=== PATIENT | female | born 2000 | race Caucasian/White ===

== ENCOUNTER 2022-05-31 09:50 | Emergency (ER) | payer BC, SELFPAY ==
[2022-05-31] VITALS (10 sets, daily range): BP systolic 128–159; BP diastolic 97–105; PULSE 116–138; RESP 16–29; TEMP 36.6; O2SAT 95–98
--- NOTE | 2022-05-31 09:55 | ED.PSYCH ---
HPI - Psych General Chief Complaint: Psychiatric Symptoms Stated Complaint: manic episode History of Present Illness HPI Narrative: 22-year-old female presents the emergency room via EMS for evaluation of paranoia and delusions. EMS states that they were on the scene with the patient and local law enforcement, stating that the patient was looking for a lost cat. Patient EMS states patient has a history of schizophrenia, bipolar and anxiety. Patient is tearful on presentation, stating that a serial killer is out to find her. Patient denies SI or HI. Related Data Allergies Allergy/AdvReac Type Severity Reaction Status Date / Time No Known Allergies Allergy Verified 05/31/22 09:59 Review of Systems Review of Systems: CONSTITUTIONAL: Denies fever, chills, or sweats. EYES: Denies visual changes, redness, or discharge. ENT: Denies rhinorrhea, congestion, sore throat, or otalgia. CARDIOVASCULAR: Denies chest pain, palpitations, or edema. RESPIRATORY: Denies cough or dyspnea. GASTROINTESTINAL: Reports nausea GENITOURINARY: Denies dysuria or hematuria. SKIN: Denies rash or itching. MUSCULOSKELETAL: Denies back pain, joint pain, or myalgia. NEUROLOGIC: Denies headache, numbness, dizziness, or weakness. PSYCHIATRIC: Denies anxiety or depression. [facility] Social History Social History Substance use type: does not use Exam Narrative: GENERAL: Well-appearing, well-nourished, no physical limitations, and in psychiatric acute distress. HEAD: Normocephalic, atraumatic. EYES: Conjunctivae normal, PERRLA and EOMI. CHEST: Clear to auscultation. No respiratory distress. No wheezes rales or rhonchi. No tenderness. HEART: Tachycardic and regular rhythm. No murmur heard. Normal peripheral pulses. EXTREMITIES: Normal range of motion. No edema. No clubbing or cyanosis SKIN: Warm, dry, no rash. No noted wounds NEURO: No focal deficits. Alert and oriented x3. MAEW. CN's II-XI intact bilaterally, normal gait PSYCH: Tearful, refusing to answer most questions. Paranoid and delusional Course Course Emergency Course: 1225: Patient is medically cleared. Crisis has been called. 1245: Patient was seen wandering the hallway of the ER looking into other patient's room. Patient overheard telling another patient to get your hands off of my son . IV was removed. Approximately 5 minutes later, patient was seen eloping the emergency room. Vital Signs Vital signs: Vital Signs Temperature 36.6 C 05/31/22 09:51 Pulse Rate 138 H 05/31/22 09:51 Respiratory Rate 16 05/31/22 09:51 Blood Pressure 159/97 H 05/31/22 09:51 Pulse Oximetry 98 05/31/22 09:51 Oxygen Delivery Room Air 05/31/22 09:51 Temperature 36.6 C 05/31/22 09:51 Pulse Rate 118 H 05/31/22 11:17 Respiratory Rate 29 H 05/31/22 11:15 Blood Pressure 128/99 H 05/31/22 11:17 Pulse Oximetry 98 05/31/22 11:00 Oxygen Delivery Room Air 05/31/22 09:51 MDM - Psych Lab Data Result diagrams: 05/31/22 10:08 05/31/22 10:08 Labs: Lab Results 05/31/22 05/31/22 05/31/22 Range/Units 10:08 10:08 10:08 WBC 13.8 H (4.5-10.0) K/mm3 RBC 4.96 (4.2-5.4) M/mm3 Hgb 14.5 (12.0-15.0) g/dL Hct 42.7 (37.0-47.0) % MCV 86.1 (80-100) fl MCH 29.2 (26-34) pg MCHC 34.0 (32-36) g/dl RDW 13.3 (11.5-14.5) % Plt Count 336 (150-375) k/mm3 MPV 9.9 (7.4-10.4) fl Immature Gran % (Auto) 0.5 (0-0.5) % Neut % (Auto) 73.9 H (45.5-73.1) % Lymph % (Auto) 18.9 (18.3-44.2) % Ida % (Auto) 5.7 (2.6-8.5) % Eos % (Auto) 0.1 (0-4.4) % Baso % (Auto) 0.9 (0.2-1.2) % Lymph # (Auto) 2.61 (0.9-3.2) K/mm3 Ida # (Auto) 0.8 H (0.1-0.6) K/mm3 Eos # (Auto) 0.0 (0-0.3) K/mm3 Baso # (Auto) 0.1 (0.0-0.1) K/mm3 Abs Immat Gran (auto) 0.07 H (0.00-0.031) K/mm3 Absolute Neuts (auto) 10.2 H (1.3-6.7) K/mm3 Absolute
--- NOTE | 2022-05-31 09:58 | ECG_ITS ---
Measurements Intervals [place] Rate: 120 P: 46 [place]: 143 QRS: 61 QRSD: 107 T: 20 QT: 351 QTc: 497 Interpretive Statements SINUS TACHYCARDIA DELAYED PRECORDIAL R/S TRANSITION BORDERLINE ST-T WAVE ABNORMALITY- INFERIOR LEADS BASELINE ARTIFACT- II, III, AVF ABNORMAL ECG Electronically Signed On 05-31-2022 12:00:42 CDT by Doug Hogan D.O.
--- NOTE | 2022-05-31 10:10 | PC.NURSE ---
Patient requesting this RN call patient's mother at [phone]. Spoke to mother, Catina, and gave update concerning patient and status. Mother states patient has been in psychosis for about 2 weeks. CHASSIS INSPECTOR Austin aware.
[2022-05-31] MEDS: SODIUM CHLORIDE 0.9% IV 1,000 ML 999 ML IV CONT (10:12)
[2022-05-31] MEDS: ONDANSETRON INJ 4 MG/2 ML VIAL IV PUSH (10:13)
[2022-05-31] MEDS: LORazepam INJ (*CRX) 2 MG/ML VIAL 1 MG IV PUSH (10:13)
--- NOTE | 2022-05-31 10:15 | PC.NURSE ---
Per WRAP CHECKER Austin, no bedside sitter needed.
[2022-05-31 10:20] LABS: Basophils Absolute Auto 0.1 K/mm3 (0.0-0.1); Basophils Percent Auto 0.9 % (0.2-1.2); Eosinophils Percent Auto 0.1 % (0-4.4); Hematocrit 42.7 % (37.0-47.0); Hemoglobin 14.5 g/dL (12.0-15.0); Immature Granulocyte Absolute 0.07 K/mm3 (0.00-0.031); Immature Granulocyte Percent A 0.5 % (0-0.5); Lymphocytes Absolute Auto 2.61 K/mm3 (0.9-3.2); Lymphocytes Percent Auto 18.9 % (18.3-44.2); Mean Corpuscular Hemoglobin 29.2 pg (26-34); Mean Corpuscular Volume 86.1 fl (80-100); Mean Platelet Volume 9.9 fl (7.4-10.4); Monocytes Absolute Auto 0.8 K/mm3 (0.1-0.6); Monocytes Percent Auto 5.7 % (2.6-8.5); Neutrophils Absolute Auto 10.2 K/mm3 (1.3-6.7); Neutrophils Percent Auto 73.9 % (45.5-73.1); Platelet Count Result 336 k/mm3 (150-375); Red Blood Count 4.96 M/mm3 (4.2-5.4); Red Cell Distribution Width 13.3 % (11.5-14.5); White Blood Count 13.8 K/mm3 (4.5-10.0)
[2022-05-31 10:29] LABS: Alanine Aminotransferase 23 U/L (6-35); Albumin Level 4.6 g/dL (3.5-5.1); Alkaline Phosphatase 95 U/L (38-126); Anion Gap 16 mmol/L (8-16); Aspartate Amino Transferase 24 U/L (14-36); Bilirubin,Total 0.6 mg/dL (0.2-1.3); Blood Urea Nitrogen 8 mg/dL (7-17); Calcium 9.3 mg/dL (8.4-10.2); Carbon Dioxide 20 mmol/L (22-30); Chloride 101 mmol/L (98-107); Estimated Glomerular Filt Rate > 60; Glucose 155 mg/dL (65-110); Potassium 3.5 mmol/L (3.4-5.0); Sodium 137 mmol/L (137-145)
[2022-05-31 10:30] LABS: Acetaminophen < 10 ug/mL (10-30); Ethanol < 10 mg/dL (<10); Salicylate < 1.0 mg/dL (2-20)
[2022-05-31 10:52] LABS: SARS-CoV-2 RNA PCR Negative
[2022-05-31 11:22] LABS: Bacteria Urine 1+ /hpf; Hyaline Casts Urine 30-49 /lpf; Mucus Urine Moderate /lpf; Squamous Epithelial Cell Urine Many /hpf (Few)
[2022-05-31 11:23] LABS: Add Urine Microscopic? YES; Appearance Urine Clear (Clear); Bilirubin Urine 1+ (Negative); Blood Urine 2+ (Negative); Color Urine Yellow (Yellow); Glucose Urine UA Negative (Negative); Ketones Urine 1+ mg/dL (Negative); Leukocyte Esterase Ur Trace LEU/UL (Negative); Nitrate Urine Negative (Negative); Protein Urine 2+ mg/dL (Negative); Specific Grav Ur 1.025 (1.001-1.035); Urobilinogen Urine 0.2 mg/dL (<2.0); pH Urine 5.5 (5.0-9.0)
[2022-05-31 12:21] LABS: Amphetamine Screen Urine Negative (Negative); Barbiturate Screen Urine Negative (Negative); Benzodiazepines Screen Urine Negative (Negative); Cannabinoid Screen Urine Positive (Negative); Cocaine Screen Urine Negative (Negative); Methadone Screen Urine Negative (Negative); Opiate Screen Urine Negative (Negative); Phencyclidine Screen Urine Negative (Negative)
--- NOTE | 2022-05-31 12:29 | PC.NURSE ---
pt ambulating around department screaming they just shot me up with heroin and i just had a heart attack. Security is attempting to get patient back into her room.
--- NOTE | 2022-05-31 12:31 | PC.NURSE ---
pt eloped out from department from the front of er with security and crisis attempting to get patient to return to room. PT had no top on, was wearing a hospital gown and supervisor [employer].
--- NOTE | 2022-05-31 12:47 | PC.NURSE ---
Kavin LAFLEUR notified of situation.
== END 2022-05-31 12:56 | disposition left against medical advice (07) ==
PROVIDERS: Emergency Provider Nurse Practitioner Family
DX: F22 Delusional disorders (principal); Z20.822 Contact with and (suspected) exposure to COVID-19
CPT/HCPCS: 36415; 80053; 80307; 81001; 85025; 87086; 87088; 93005; 96361; 96374; 96375; 99284; C9803; J2060; J2405; J7030; U0003; U0005